=== PATIENT | male | born 2005 | race Two or more races ===

== ENCOUNTER 2025-06-14 21:45 | Emergency (ER) | payer OTHER ==
[2025-06-14 21:52] VITALS: BP 150/75; PULSE 104
== END 2025-06-14 22:17 | disposition home or self-care (01) ==
LOC: DL.ED 21:45
DX: S06.0X0A Concussion without loss of consciousness, initial encounter (principal); W21.07XA Struck by softball, initial encounter
CPT/HCPCS: 99283